=== PATIENT | male | born 1960 | race Asian ===

== ENCOUNTER 2016-09-28 21:55 | Emergency (ER) | payer OTHER ==
[~2016-09-28] VITALS: Ht 167.6 cm; Wt 99.8 kg
[~2016-09-28 21:55] MED LIST: AMOX1TAB61 PO; CANA100T; INSU100I17 SQ; INSU100I27 SQ; LISI-338; LISI-338 PO; LOVA10TA; OXYC1TAB9 PO; SITA1TAB7
[2016-09-28 21:59] VITALS: BP 126/82
[2016-09-28] MEDS ORDERED: LIDO:MAALOX:DONNATAL 1:1:1 15 ML SINGLE DOSE SWSW ONE (22:15)
--- NOTE | 2016-09-28 22:17 | PHYS DOC ---
Past Medical History Past Medical History: Diabetes-Type II, High Cholesterol, Hypertension Past Surgical History: No Surgical History Alcohol Use: None Drug Use: None Adult General Chief Complaint Chief Complaint: CHEST PAIN HPI HPI Patient is a 55 year old male who presents with for intermittent epigastric burning pain radiating into mid chest and intermittent left arm pains. Last occurred around 2100 or 2200 last night. Denies current symptoms. Denies f/c, n/v, cough, dyspnea, diaphoresis, palpitations, orthopnea, exertional symptoms, hemoptysis, leg pain or swelling. Review of Systems Review of Systems Constitutional: Denies fever or chills [] Eyes: Denies change in visual acuity, redness, or eye pain [] HENT: Denies nasal congestion or sore throat [] Respiratory: Denies cough or shortness of breath [] Cardiovascular: No additional information not addressed in HPI [] GI: Denies abdominal pain, nausea, vomiting, bloody stools or diarrhea [] : Denies dysuria or hematuria [] Musculoskeletal: Denies back pain or joint pain [] Integument: Denies rash or skin lesions [] Neurologic: Denies headache, focal weakness or sensory changes [] Endocrine: Denies polyuria or polydipsia [] Current Medications Current Medications Current Medications Medications (Trade) Dose Ordered Sig/Hilda Start Time Stop Time Status Last Admin Dose Admin Multi-Ingredient Mouthwash/Gargle (Gi Cocktail Single Dose) 15 ml 1X ONCE 09/28/16 22:15 09/28/16 22:16 DC 09/28/16 22:43 15 ML Allergies Allergies Allergies Coded Allergies Type Severity Reaction Last Updated Verified No Known Drug Allergies 05/22/16 No Physical Exam Physical Exam Constitutional: Well developed, well nourished, no acute distress, non-toxic appearance. [] HENT: Normocephalic, atraumatic, bilateral external ears normal, oropharynx moist, nose normal. [] Eyes: PERRLA, EOMI. [] Neck: Normal range of motion, supple. [] Cardiovascular:Heart rate regular rhythm [] Lungs & Thorax: Bilateral breath sounds clear to auscultation [] Abdomen: Bowel sounds normal, soft, no tenderness. [] Skin: Warm, dry, no erythema, no rash. [] Back: Normal ROM. [] Extremities: No tenderness, ROM intact, no edema. [] Neurologic: Alert and oriented X 3, normal motor function, normal sensory function, no focal deficits noted. [] Psychologic: Affect normal, judgement normal, mood normal. [] Current Patient Data Vital Signs Vital Signs Date Time Temp Pulse Resp B/P Pulse Ox O2 Delivery O2 Flow Rate FiO2 09/28/16 21:59 98.6 93 15 126/82 93 Room Air 98.6 Lab Values Laboratory Tests Test 09/28/16 22:30 White Blood Count 11.2x10^3/uL (4.0-11.0) H Red Blood Count 6.92x10^6/uL (4.30-5.70) H Hemoglobin 17.0g/dL (13.0-17.5) Hematocrit 48.3% (39.0-53.0) Mean Corpuscular Volume 70fL (79-100) L Mean Corpuscular Hemoglobin 25pg (25-35) Mean Corpuscular Hemoglobin Concent 35g/dL (31-37) Red Cell Distribution Width 15.8% (11.5-14.5) H Platelet Count 153x10^3/uL (140-400) Neutrophils (%) (Auto) 48% (31-73) Lymphocytes (%) (Auto) 40% (24-48) Monocytes (%) (Auto) 8% (0-9) Eosinophils (%) (Auto) 3% (0-3) Basophils (%) (Auto) 1% (0-3) Neutrophils # (Auto) 5.4x10^3uL (1.8-7.7) Lymphocytes # (Auto) 4.5x10^3/uL (1.0-4.8) Monocytes # (Auto) 0.9x10^3/uL (0.0-1.1) Eosinophils # (Auto) 0.3x10^3/uL (0.0-0.7) Basophils # (Auto) 0.1x10^3/uL (0.0-0.2) Platelet Estimate Pending Sodium Level 140mmol/L (136-145) Potassium Level 3.7mmol/L (3.5-5.1) Chloride Level 100mmol/L (98-107) Carbon Dioxide Level 24mmol/L (21-32) Anion Gap 16 (6-14) H Blood Urea Nitrogen 28mg/dL (8-26) H Creatinine 1.0mg/dL (0.7-1.3) Estimated GFR (Cockcroft-Gault) 77.9 Glucose Level 239mg/dL (70-99) H Calcium Level 9.6mg/dL (8.5-10.1) Troponin I Quantitative < 0.017ng/mL (0.000-0.055) Laboratory Tests 09/28/16 22:30 Laboratory Tests 09/28/16 22:30 EKG EKG EKG as interpreted by me as NSR, rate 95, no ST-T changes, normal intervals, no ectopy Radiology/Procedures Radiology/Procedures Chest xray as interpreted by me with no acute cardiopulmonary disease process Course & Med Decision Making Course & Med Decision Making Pertinent Labs and Imaging studies reviewed. (See chart for details) Laboratory evaluation is unremarkable other than hyperglycemia. He remains asymptomatic at this time. Will give famotidine for possible acid reflux symptoms. Return precautions given. He and understands and agrees with plan. Dragon Disclaimer Dragon Disclaimer This electronic medical record was generated, in whole or in part, using a voice recognition dictation system. Departure Departure Impression: Primary Impression: Chest pain Disposition: HOME, SELF-CARE Condition: STABLE Referrals: ANGELINA PAREDES (PCP) Patient Instructions: Diet for Gastroesophageal Reflux Disease, Adult, Easy-to- Read Additional Instructions: Take famotidine for possible GERD. Follow-up with your primary care doctor. Return for any concerns. Scripts Famotidine 20 Mg [id number] Mg PO BID #30 TAB Prov:Seble BLACK MD 09/28/16 Problem Qualifiers Primary Impression: Chest pain Chest pain type: unspecified Qualified Code: R07.9 - Chest pain, unspecified Seble BLACK MD Sep 28, 2016 22:17
[2016-09-28 22:45] LABS: BASO # 0.1 x10^3/uL (0.0-0.2); BASO % 1 % (0-3); EOS % 3 % (0-3); HEMATOCRIT 48.3 % (39.0-53.0); LYMPH # 4.5 x10^3/uL (1.0-4.8); LYMPH % 40 % (24-48); MEAN CORPUSCULAR HEMOGLOBIN 25 pg (25-35); MEAN CORPUSCULAR HGB CONC 35 g/dL (31-37); MEAN CORPUSCULAR VOLUME 70 fL (79-100); MONO % 8 % (0-9); NEUT % 48 % (31-73); PLATELET COUNT 153 x10^3/uL (140-400); RED BLOOD COUNT 6.92 x10^6/uL (4.30-5.70); RED CELL DISTRIBUTION WIDTH 15.8 % (11.5-14.5); WHITE BLOOD COUNT 11.2 x10^3/uL (4.0-11.0)
[2016-09-28 23:07] LABS: CALCIUM 9.6 mg/dL (8.5-10.1); GFR 77.9; POTASSIUM 3.7 mmol/L (3.5-5.1)
[2016-09-28] MEDS ORDERED: FAMO20TA5 PO (23:22)
[2016-09-28 23:57] LABS: PLT ESTIMATE ADEQUATE (ADEQUATE)
[2016-09-28 23:58] LABS: CRENATED RBC PRESENT; HYPOCHROMIA SLIGHT; MICROCYTOSIS MOD; POLYCHROMASIA SLIGHT; TARGET CELLS OCC
--- NOTE | 2016-09-29 07:55 | RAD ---
Indication chest pain. PA and lateral views of the chest were obtained and are compared to a study 02/01/2013. There is unchanged mild cardiomegaly. There is no congestive heart failure focal infiltrate significant pleural fluid collection or pneumothorax. Slightly tortuous thoracic aorta is noted. A significant change in the chest compared to the previous exam is not seen. IMPRESSION: No acute finding or significant change
--- NOTE | 2016-09-29 11:26 | EKG ---
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
== END 2016-09-28 23:29 | disposition home or self-care (01) ==
LOC: ER 21:55
DX: R07.9 Chest pain, unspecified (principal); R10.13 Epigastric pain; M79.602 Pain in left arm; E11.9 Type 2 diabetes mellitus without complications; E78.00 Pure hypercholesterolemia, unspecified; I10 Essential (primary) hypertension
CPT/HCPCS: 36415; 71020; 80048; 84484; 85007; 85027; 93005; 99285-25

== ENCOUNTER 2016-10-27 20:08 | Emergency (ER) | payer OTHER ==
[~2016-10-27] VITALS: Ht 167.6 cm; Wt 99.8 kg
[~2016-10-27 20:08] MED LIST changes: +FAMO20TA5 PO
[2016-10-27 20:14] VITALS: BP 136/88
[2016-10-27] MEDS ORDERED: DOCU100C5 PO (22:59)
[2016-10-27] MEDS ORDERED: POLY119P4 PO (22:59)
[2016-10-27] MEDS ORDERED: SENN8.6T3 PO (22:59)
--- NOTE | 2016-10-27 23:00 | PHYS DOC ---
Past Medical History Past Medical History: Diabetes-Type II, High Cholesterol, Hypertension Past Surgical History: No Surgical History Alcohol Use: None Drug Use: None Adult General Chief Complaint Chief Complaint: CONSTIPATION HPI HPI Patient is a 55 year old male who presents with constipation. Patient accompanied by his , who contributes to history. Patient had small bowel movement yesterday, but has been constipated for the past several days. He feels like he is having trouble moving his bowels when he tries. No abdominal pain. He does have a full sensation in his rectum. No nausea or vomiting. He took a dose of mag citrate shortly before coming to the emergency department. Review of Systems Review of Systems Constitutional: Denies fever or chills Respiratory: Denies cough or shortness of breath Cardiovascular: Denies chest pain GI: Constipation. Denies abdominal pain, nausea, vomiting, or diarrhea Musculoskeletal: Denies back pain or joint pain Neurologic: Denies headache, focal weakness or sensory changes Allergies Allergies Allergies Coded Allergies Type Severity Reaction Last Updated Verified No Known Drug Allergies 05/22/16 No Physical Exam Physical Exam Constitutional: Well developed, well nourished, no acute distress, non-toxic appearance Cardiovascular: Heart rate normal, regular rhythm, no murmur Lungs & Thorax: Bilateral breath sounds clear to auscultation Abdomen: Bowel sounds normal, soft, non-distended, no TTP Rectal: No erythema, warmth to touch, induration, focal TTP, swelling noted; moderate amount firm stool in vault; no blood noted Skin: Warm, dry, no erythema, no rash Extremities: No obvious deformity, no edema Neurologic: Alert and oriented X 3, no gross deficits noted Current Patient Data Vital Signs Vital Signs Date Time Temp Pulse Resp B/P Pulse Ox O2 Delivery O2 Flow Rate FiO2 10/27/16 20:14 97.9 90 18 136/88 97 Room Air 97.9 EKG EKG [] Radiology/Procedures Radiology/Procedures KUB (my read): Constipation Course & Med Decision Making Course & Med Decision Making Pertinent Labs and Imaging studies reviewed. (See chart for details) Patient is 55-year-old male who presents with constipation. Moderate mount firm stool noted in vault; I was unable to remove significant amount of stool, but I did break it up some. KUB already obtained, shows constipation per my read. Enema ordered; significant results afterwards. Patient discharged home with prescription for bowel regimen, instructions follow-up, return precautions. Dragon Disclaimer Dragon Disclaimer This electronic medical record was generated, in whole or in part, using a voice recognition dictation system. Departure Departure Impression: Primary Impression: Constipation Disposition: HOME, SELF-CARE Condition: STABLE Referrals: ANGELINA PAREDES (PCP) Patient Instructions: Constipation, Adult Additional Instructions: Thank you for allowing us to provide care today in the Emergency Department. Take the provided medication as directed. Schedule a follow up appointment with your primary care doctor. Return promptly to the Emergency Department if you develop any new or concerning symptoms. Scripts Docusate Sodium 100 Mg Capsule1 Cap PO BID #60 CAP Prov:DARCY LUIS MD 10/27/16 Sennosides (Senna)8.6 Mg Tablet8.6 Mg PO DAILY #30 Prov:DARCY LUIS MD 10/27/16 Polyethylene Glycol 3350 (Miralax)119 Gm Fnhwli79 Gm PO DAILY #255 GM Prov:DARCY LUIS MD 10/27/16 DARCY LUIS MD Oct 27, 2016 23:00
--- NOTE | 2016-10-28 09:00 | RAD ---
Acute abdomen series with chest, 3 views, 10/27/2016: History: Constipation There is a moderate amount of stool scattered throughout the colon. The abdominal gas pattern is otherwise unremarkable. No free air is seen in the abdomen. The stomach appears to be mildly distended with fluid. No abnormal abdominal calcifications are seen. Scattered degenerative changes are evident the spine. The heart is mildly enlarged. The depth of inspiration on the PA view is suboptimal with mild basilar atelectasis. There is no evidence of pleural fluid. IMPRESSION: 1. Increased stool throughout the colon. 2. Mild distention of the stomach with fluid. 3. Cardiomegaly
== END 2016-10-28 00:30 | disposition home or self-care (01) ==
LOC: ER 20:08
DX: K59.00 Constipation, unspecified (principal); E11.9 Type 2 diabetes mellitus without complications; E78.00 Pure hypercholesterolemia, unspecified; I10 Essential (primary) hypertension
CPT/HCPCS: 74022; 99283; 99284

== ENCOUNTER → 2017-06-08 | Outpatient (CLI) | payer OTHER ==
[~2017-06-08] MED LIST changes: +DOCU100C28 PO; +POLY119P4 PO; +SENN-79 PO
--- NOTE | 2017-06-08 12:05 | RAD ---
KNEE LEFT 3V Clinical Indication: PAIN AND DJD Comparison: None. Technique: Frontal, oblique and lateral views of the left knee are obtained. Findings: No acute fracture or dislocation is seen. Mild degenerative changes are present. No significant joint effusion is appreciated. IMPRESSION: No acute osseous injury.
== END | disposition home or self-care (01) ==
LOC: RAD 09:50
PROVIDERS: ATTEND Family Medicine
DX: M17.12 Unilateral primary osteoarthritis, left knee (principal)
CPT/HCPCS: 73562

== ENCOUNTER 2018-11-20 22:01 | Emergency (ER) | payer OTHER ==
[~2018-11-20] VITALS: Ht 167.6 cm; Wt 81.6 kg
[~2018-11-20 22:01] MED LIST changes: +OXYC-411 PO; -OXYC1TAB9 PO; -SENN-79 PO; +SENN-80 PO; +SITA1TAB11 PO
[2018-11-20 23:13] LABS: BASO % 1 % (0-3); EOS # 0.1 x10^3/uL (0.0-0.7); EOS % 2 % (0-3); HEMATOCRIT 44.9 % (39.0-53.0); HEMOGLOBIN 13.9 g/dL (13.0-17.5); LYMPH # 3.4 x10^3/uL (1.0-4.8); LYMPH % 44 % (24-48); MEAN CORPUSCULAR HEMOGLOBIN 22 pg (25-35); MEAN CORPUSCULAR HGB CONC 31 g/dL (31-37); MEAN CORPUSCULAR VOLUME 71 fL (79-100); MONO # 0.5 x10^3/uL (0.0-1.1); MONO % 7 % (0-9); NEUT # 3.6 x10^3uL (1.8-7.7); NEUT % 47 % (31-73); PLATELET COUNT 128 x10^3/uL (140-400); RED BLOOD COUNT 6.32 x10^6/uL (4.30-5.70); RED CELL DISTRIBUTION WIDTH 14.9 % (11.5-14.5); WHITE BLOOD COUNT 7.7 x10^3/uL (4.0-11.0)
[2018-11-20 23:21] LABS: CALCIUM 9.4 mg/dL (8.5-10.1); CREATININE 1.2 mg/dL (0.7-1.3); GFR 62.6; POTASSIUM 3.8 mmol/L (3.5-5.1)
[2018-11-20 23:25] LABS: BILIRUBIN,URINE NEGATIVE (NEG); CLARITY,URINE CLEAR; COLOR,URINE YELLOW; NITRITE,URINE NEGATIVE (NEG); PH,URINE 5.5; PROTEIN,URINE NEGATIVE (NEG-TRACE); UROBILINOGEN,URINE 0.2 mg/dL (0.2 mg/dL)
[2018-11-20 23:27] LABS: ALBUMIN 3.5 g/dL (3.4-5.0); ALBUMIN/GLOBULIN RATIO 0.8 (1.0-1.7); TOTAL BILIRUBIN 0.3 mg/dL (0.2-1.0); TOTAL PROTEIN 7.8 g/dL (6.4-8.2)
[2018-11-20 23:28] LABS: SQUAMOUS EPITHELIAL CELL,UR FEW /LPF
[2018-11-20 23:29] LABS: BACTERIA,URINE 0 /HPF (0-FEW); RBC,URINE 0 /HPF (0-2); WBC,URINE 0 /HPF (0-4)
[2018-11-20 23:32] VITALS: BP 127/70
[2018-11-20 23:41] LABS: HYPOCHROMIA MOD; MICROCYTOSIS MOD; PLT ESTIMATE ADEQUATE (ADEQUATE)
[2018-11-20] MEDS ORDERED: IOHEXOL 300 MG/ML 100ML VIAL. IV ONE (23:45)
[2018-11-20] MEDS ORDERED: CONTRAST GIVEN. MC PRN (23:45)
--- NOTE | 2018-11-21 00:15 | RAD ---
CT scan abdomen and pelvis with contrast 11/20/2018 CLINICAL HISTORY: Left-sided abdominal pain. Swelling. TECHNIQUE: After the intravenous administration of 75 cc of Omnipaque 350 only, contiguous, 5 mm axial sections were obtained through the abdomen and pelvis. One or more of the following individualized dose reduction techniques were utilized for this study: 1. Automated exposure control. 2. Adjustment of the mA and/or kV according to patient size. 3. Use of iterative reconstruction technique. FINDINGS: Comparison is made to a CT scan of the pelvis dated 05/22/2016. Images through the lung bases demonstrate mild cardiomegaly. Minimal dependent subsegmental atelectasis is seen bilaterally. The liver parenchyma is decreased attenuation consistent with fatty infiltration. The spleen, pancreas, adrenal glands and kidneys are within normal limits. Atherosclerotic calcification abdominal aorta and its branches is seen. The abdominal aorta tapers normally. The gallbladder is well-distended. No free fluid or free air is seen within the abdomen. There is no evidence of bowel obstruction. Air and stool seen throughout the colon. The appendix is well-visualized and is within normal limits. Images through the pelvis demonstrate the urinary bladder distended with urine. No free fluid is seen. Degenerative changes are seen involving the lower thoracic and throughout the lumbar spine and both hips. Minimal S-shaped curvature of the thoracolumbar spine is seen. IMPRESSION: No acute abnormality is seen. Electronically signed by: Phuc Duncan MD (11/21/2018 12:12 AM) [facility]
--- NOTE | 2018-11-21 00:33 | PHYS DOC ---
Past Medical History Past Medical History: Diabetes-Type II, High Cholesterol, Hypertension (LUZ SOW) Past Surgical History: No Surgical History (LUZ SOW) Alcohol Use: None Drug Use: None (LUZ SOW) Adult General Chief Complaint Chief Complaint: ABDOMINAL PAIN HPI HPI Patient is a 57 year old male who has noticed a bulging tender area in L side of abd just under L rib cage for several days. He does feel like it came on after lifting a heavy object. Pt's son in room is translating and pt declined manager group home phone. Pt denies nausea, vomiting, diarrhea or constipation but states the area is quite tender. He has never been diagnosed with a hernia but is concerned that he has one. (LUZ SOW) Review of Systems Review of Systems Constitutional: Denies fever or chills HENT: Denies nasal congestion or sore throat Respiratory: Denies cough or shortness of breath Cardiovascular: Denies chest pain. GI: Denies nausea, vomiting, bloody stools or diarrhea. Reports abd pain LUQ. : Denies dysuria or hematuria Musculoskeletal: Denies back pain or joint pain Integument: Reports "swelling" area on abdomen. Neurologic: Denies headache, focal weakness or sensory changes Endocrine: Denies polyuria or polydipsia All other systems were reviewed and found to be within normal limits, except as documented in this note. (LUZ SOW) Current Medications Current Medications Current Medications Medications (Trade) Dose Ordered Sig/Hilda Start Time Stop Time Status Last Admin Dose Admin Info (CONTRAST GIVEN -- Rx MONITORING) 1 each PRN DAILY PRN 11/20/18 23:45 11/21/18 00:46 DC Iohexol (Omnipaque 300 Mg/ml) 75 ml 1X ONCE 11/20/18 23:45 11/20/18 23:46 DC 11/21/18 00:02 75 ML (JEFFERSON ALEJANDRA DO) Allergies Allergies Allergies Coded Allergies Type Severity Reaction Last Updated Verified No Known Drug Allergies 05/22/16 No (JEFFERSON ALEJANDRA DO) Physical Exam Physical Exam Constitutional: Well developed, well nourished, no acute distress, non-toxic appearance. HENT: Normocephalic, atraumatic, oropharynx moist Neck: Normal range of motion, no tenderness, supple, no stridor. Cardiovascular:Heart rate regular rhythm, no murmur Lungs & Thorax: Bilateral breath sounds clear to auscultation Abdomen: Bowel sounds normal, soft. Abd tender in LUQ where there is a mild area of distention that is mildly tender to palpation, but soft with normal skin color. Skin: Warm, dry, no erythema, no rash. See Abd section. Back: No tenderness, no CVA tenderness. Extremities: No tenderness, no cyanosis, no clubbing, ROM intact, no edema in legs. Neurologic: Alert and oriented X 3, normal motor function, normal sensory function, no focal deficits noted. Psychologic: Affect normal, judgement normal, mood normal. (LUZ SOW) Current Patient Data Vital Signs Vital Signs Date Time Temp Pulse Resp B/P (MAP) Pulse Ox O2 Delivery O2 Flow Rate FiO2 11/20/18 23:32 75 127/70 (89) 93 11/20/18 22:37 98.2 18 Room Air 98.2 (ALEJANDRA,JEFFERSON Tompkins DO) Lab Values Laboratory Tests Test 11/20/18 23:04 11/20/18 23:18 White Blood Count 7.7 x10^3/uL (4.0-11.0) Red Blood Count 6.32 x10^6/uL (4.30-5.70) H Hemoglobin 13.9 g/dL (13.0-17.5) Hematocrit 44.9 % (39.0-53.0) Mean Corpuscular Volume 71 fL (79-100) L Mean Corpuscular Hemoglobin 22 pg (25-35) L Mean Corpuscular Hemoglobin Concent 31 g/dL (31-37) Red Cell Distribution Width 14.9 % (11.5-14.5) H Platelet Count 128 x10^3/uL (140-400) L Neutrophils (%) (Auto) 47 % (31-73) Lymphocytes (%) (Auto) 44 % (24-48) Monocytes (%) (Auto) 7 % (0-9) Eosinophils (%) (Auto) 2 % (0-3) Basophils (%) (Auto) 1 % (0-3) Neutrophils # (Auto) 3.6 x10^3uL (1.8-7.7) Lymphocytes # (Auto) 3.4 x10^3/uL (1.0-4.8) Monocytes # (Auto) 0.5 x10^3/uL (0.0-1.1) Eosinophils # (Auto) 0.1 x10^3/uL (0.0-0.7) Basophils # (Auto) 0.0 x10^3/uL (0.0-0.2) Platelet Estimate Adequate (ADEQUATE) Hypochromasia Mod Microcytosis Mod Sodium Level 137 mmol/L (136-145) Potassium Level 3.8 mmol/L (3.5-5.1) Chloride Level 100 mmol/L (98-107) Carbon Dioxide Level 25 mmol/L (21-32) Anion Gap 12 (6-14) Blood Urea Nitrogen 33 mg/dL (8-26) H Creatinine 1.2 mg/dL (0.7-1.3) Estimated GFR (Cockcroft-Gault) 62.6 BUN/Creatinine Ratio 28 (6-20) H Glucose Level 354 mg/dL (70-99) H Calcium Level 9.4 mg/dL (8.5-10.1) Total Bilirubin 0.3 mg/dL (0.2-1.0) Aspartate Amino Transferase (AST) 27 U/L (15-37) Alanine Aminotransferase (ALT) 62 U/L (16-63) Alkaline Phosphatase 60 U/L (46-116) Total Protein 7.8 g/dL (6.4-8.2) Albumin 3.5 g/dL (3.4-5.0) Albumin/Globulin Ratio 0.8 (1.0-1.7) L Lipase 135 U/L (73-393) Urine Collection Type Unknown Urine Color Yellow Urine Clarity Clear Urine pH 5.5 Urine Specific [place] 1.025 Urine Protein Negative mg/dL (NEG-TRACE) Urine Glucose (UA) >=1000 mg/dL (NEG) Urine Ketones (Stick) Negative mg/dL (NEG) Urine Blood Negative (NEG) Urine Nitrite Negative (NEG) Urine Bilirubin Negative (NEG) Urine Urobilinogen Dipstick 0.2 mg/dL (0.2 mg/dL) Urine Leukocyte Esterase Negative (NEG) Urine RBC 0 /HPF (0-2) Urine WBC 0 /HPF (0-4) Urine Squamous Epithelial Cells Few /LPF Urine Bacteria 0 /HPF (0-FEW) Laboratory Tests 11/20/18 23:04 Laboratory Tests 11/20/18 23:04 (JEFFERSON ALEJANDRA DO) EKG EKG [] (LUZ SOW) Radiology/Procedures Radiology/Procedures CT: normal, no acute findings, specifically did not mention any signs of incarcerated hernia (LUZ SOW) Course & Med Decision Making Course & Med Decision Making Pertinent Labs and Imaging studies reviewed. (See chart for details) Pt's blood sugar elevated over 300mg/dL. Pt is type 2 diabetic on insulin, discussed hyperglycemia and need for close monitoring. Pt's CT reassuring but clinically he might have an early weakness in this L upper abd wall. Have discussed signs and symptoms of hernia emergencies and have asked him to f/u closely with PCP and/or surgeon and provided him with employee relation manager surgeon name, Dr. Mora. Pt voices understanding and will return if symptoms worsen at anytime. (LUZ SOW) Dragon Disclaimer Dragon Disclaimer This electronic medical record was generated, in whole or in part, using a voice recognition dictation system. (LUZ SOW) Departure Departure Impression: Primary Impression: Abdominal pain Additional Impressions: Hernia Hyperglycemia Disposition: 01 HOME, SELF-CARE Condition: STABLE Referrals: ANGELINA PAREDES (PCP) TD MORA MD Patient Instructions: Abdominal Pain, [id number], Hernia, [id number] Additional Instructions: Your CT today looks good. They do not notice an obvious hernia, however, your symptoms and clinical exam suggest you may have a weakness in the abdominal wall causing that protrusion and discomfort. When you lay flat for the CT scan sometimes you can't see this irregularity but I would recommend close follow up with a general surgeon for evaluation. Dr. Mora's name and number is being provided and he is a general surgeon. Your blood sugar is very elevated today. Follow up with your PCP this next week for further care. Attending Signature Attending Signature I have reviewed the PA/TEXTILES AND CLOTHING TEACHER's note and plan of care. I was available for consultation as needed during the patient's visit in the emergency department. I agree with the clinical impression, plan, and disposition. (JEFFERSON ALEJANDRA DO) Problem Qualifiers LUZ SOW November 21, 2018 00:33 JEFFERSON ALEJANDRA DO November 25, 2018 14:33
== END 2018-11-21 00:46 | disposition home or self-care (01) ==
LOC: ER 22:01
DX: K46.9 Unspecified abdominal hernia without obstruction or gangrene (principal); E11.65 Type 2 diabetes mellitus with hyperglycemia; I10 Essential (primary) hypertension; E78.00 Pure hypercholesterolemia, unspecified
CPT/HCPCS: 36415; 74177; 80053; 81001; 83690; 85025; 99285; Q9967